=== PATIENT | male | born 1950 | race Caucasian/White ===

== ENCOUNTER 2018-05-17 10:09 | Inpatient (IN) | payer OTHER ==
[~2018-05-17] VITALS: Ht 170.2 cm; Wt 61.7 kg
[2018-05-17] MEDS ORDERED: GLUCOPHAGE XR750 MG (10:29)
[2018-05-17] MEDS ORDERED: GLIMEPIRIDE4 MG (10:29)
[2018-05-17] MEDS ORDERED: LOSARTAN POTASS25 MG (10:30)
[2018-05-17] MEDS ORDERED: GRALISE300 MG (10:30)
[2018-05-17] MEDS ORDERED: ZOCOR40 MG (10:31)
[2018-05-17] MEDS ORDERED: LYRICA300 MG (10:31)
--- NOTE | 2018-05-17 10:34 | NUR ---
PTE REFIERE QUE FANY SE INTRODUJO UN OBJETO POR EL ANO Y NO BUTTS PODIDO SALIR Y HOY TIENE DOLOR EN EL CUDRANTE DERECHO DEL ABDOMEN.
--- NOTE | 2018-05-17 12:32 | NUR ---
SE ORIENTA PTE SORBE EL TRATAMIENTO ORDENADO POR EL DR CORDOVA PTE ALERTA Y CONCIENTE POR 3 SE REALIZAN MUESTRAS DE LABORATORIO PTE EN ESPERA DE RESULTADO.
--- NOTE | 2018-05-17 15:22 | NUR ---
SE RECIBE MASCULINO ALERTA Y ORIENTADO POR ANDRÉS ESFERAS, EN HORACE. AREA DE VENOPUNCION RADHA DE EDEMA O ENROJECIMIENTO. SE MANTIENE EN OBSERAVCION POR CAMBIOS.
== END 2018-05-20 14:09 | disposition home or self-care (01) | DRG 330 ==
LOC: ER 10:09 → SEC-K 15:13 → SURH 15:13
PROVIDERS: Surgery; ADMIT Surgery
PROC: BW21ZZZ Computerized Tomography (CT Scan) of Abdomen and Pelvis (ICD-10-PCS; principal; 2018-05-18 13:00)
PROC: 0DJD8ZZ Inspection of Lower Intestinal Tract, Via Natural or Artificial Opening Endoscopic (ICD-10-PCS; principal; 2018-05-18 13:00)
PROC: 0DCP7ZZ Extirpation of Matter from Rectum, Via Natural or Artificial Opening (ICD-10-PCS; principal; 2018-05-18 13:00)
PROC: 0DQP7ZZ Repair Rectum, Via Natural or Artificial Opening (ICD-10-PCS; principal; 2018-05-18 13:00)
DX: T18.5XXA Foreign body in anus and rectum, initial encounter (principal); S36.63XA Laceration of rectum, initial encounter; W45.8XXA Other foreign body or object entering through skin, initial encounter; E11.9 Type 2 diabetes mellitus without complications